=== PATIENT | female | born 1970 | race American Indian/Alaskan Native ===

== ENCOUNTER 2016-07-22 05:48 | Inpatient (IN) | payer BC, OTHER ==
--- NOTE | 2016-07-21 10:04 | Anesthesia Consultation ---
Anesthesia Consult and Med Hx - Airway Anesthetic Teeth Evaluation: Good, Crowns ROM Head & Neck: Adequate Mental/Hyoid Distance: Adequate Mallampati Class: Class II Intubation Access Assessment: Probably Good - Pulmonary Exam CTA: Yes - Cardiac Exam Cardiac Exam: RRR - Pre-Operative Health Status ASA Pre-Surgery Classification: ASA2 Proposed Anesthetic Plan: General - Central Nervous System Hx Psychiatric Problems: No - Gastrointestinal Hx Gastroesophageal Reflux Disease: Yes (In past , no meds) - Endocrine Hx Insulin Dependent Diabetes: No Hx Hypothyroidism: Yes (not on meds) - Other Systems Hx Alcohol Use: Yes (2 GLASSES OF WINE ON WEEKENDS ) Hx Cancer: No Hx Obesity: Yes - Additional Comments Anesthesia Medical History Comments: Pt has no hx of anesthesia problems in past. GERD in past on no meds. Takes meds for Herpes. BMI >35
[2016-07-21 10:29] LABS: Hematocrit 35.8 % (30.3-42.9); Hemoglobin 11.5 gm/dl (10.1-14.3); Mean Corpuscular HGB Conc 32 % (30-34); Mean Corpuscular Hemoglobin 28 pg (28-32); Mean Corpuscular Volume 87 fl (79-97); Platelet Count 247 K/mm3 (140-440); Red Blood Count 4.14 M/mm3 (3.65-5.03); Red Cell Distribution Width 15.6 % (13.2-15.2); White Blood Count 3.7 K/mm3 (4.5-11.0)
--- NOTE | 2016-07-21 21:55 | History and Physical Report ---
History of Present Illness Date of examination: 07/09/16 Chief complaint: pelvic pain History of present illness: Pt is a 46 year old presents for surgical management of pelvic pain and uterine fibroids after failed medical management. 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 History: fibroids, herpes Family/Genetic History: diabetes, heart disease, cancer Social history: Medications and Allergies Allergies Allergy/AdvReac Type Severity Reaction Status Date / Time latex Allergy Itching,Bur Verified 07/14/16 16:54 liseth tramadol Allergy nausea, Verified 07/14/16 16:54 jittery Home Medications Medication Instructions Recorded Confirmed Last Taken Type Cholecalciferol (Vitamin D3) 2,000 unit PO QDAY 08/02/15 07/14/16 08/02/15 History [Vitamin D-3] Mv,Ca,Min/Iron Fum/FA/Lyco/Lut 1 each PO QDAY 08/02/15 07/14/16 08/02/15 History [Complete Multi Tablet] Valacyclovir HCl [Valtrex] 500 mg PO PRN PRN 08/02/15 07/14/16 08/02/15 History Ibuprofen [Motrin] 800 mg PO Q6H PRN 07/14/16 07/14/16 Unknown History Active Meds: Active Medications Famotidine (Pepcid) 20 mg PO PREOP NR Stop: 07/22/16 23:59 Lactated Ringer's (Lactated Ringers) 1,000 mls @ 75 mls/hr IV DIRECT JEFF Midazolam HCl (Versed) 2 mg IV PREOP NR Stop: 07/22/16 23:59 Review of Systems All systems: negative - Vital Signs Vital signs: Vital Signs Temp Pulse Resp BP 97.4 F L 76 14 130/82 07/21/16 09:30 07/21/16 09:30 07/21/16 09:30 07/21/16 09:30 Temp Pulse Resp BP Pulse Ox 97.4 F L 76 14 130/82 07/21/16 09:30 07/21/16 09:30 07/21/16 09:30 07/21/16 09:30 - Physical Exam Breasts: Positive: deferred Cardiovascular: Regular rate Lungs: Positive: Clear to auscultation Abdomen: Positive: soft (obese) Extremities: Positive: normal Results Result Diagrams: 07/21/16 09:45 Abnormal lab results 07/21/16 Range/Units 09:45 WBC 3.7 L (4.5-11.0) K/mm3 RDW 15.6 H (13.2-15.2) % All other labs normal. Ultrasound: other (05/06/16: Uterus 9.4x4.5x5.3 cm, four fibroids noted) Assessment and Plan A: Pelvic Pain Fibroid Uterus Obesity P: Proceed with laparoscopic-assisted vaginal hysterectomy, possible bilateral salpingo-oophorectomy and other indicated procedures.
[~2016-07-22 05:48] MED LIST: ANCEF/STERILE WATER 2 GM/20 ML 20 ML IV SCH; LACTATED RINGERS 1,000 ML IV SCH; VERSED IV NR
[2016-07-22] MEDS ORDERED: NACL BACTERIOSTATIC INFILTRATI ONE (05:59)
[2016-07-22] MEDS ORDERED: PEPCID PO NR (06:00)
[2016-07-22] MEDS ORDERED: VERSED IV ONE (07:01)
[2016-07-22 07:04] LABS: BUN/Creatinine Ratio 14.28; Blood Urea Nitrogen 10 mg/dL (7-17); Calcium 9.2 mg/dL (8.4-10.2); Carbon Dioxide 26 mmol/L (22-30); Chloride 99.1 mmol/L (98-107); Glucose 97 mg/dL (65-100); Potassium 4.1 mmol/L (3.6-5.0); Sodium 138 mmol/L (137-145)
[2016-07-22 07:14] LABS: Anion Gap 17 mmol/L
--- NOTE | 2016-07-22 07:16 | Anesthesia Day of Surgery ---
Anesthesia Day of Surgery - Day of Surgery Patient Examined: Yes Patient H&P Reviewed: Yes Patient is NPO: Yes
[2016-07-22] MEDS ORDERED: ZOFRAN IV PRN ×3 (07:18→12:57)
[2016-07-22] MEDS ORDERED: DILAUDID IV PRN (07:18)
[2016-07-22] MEDS ORDERED: DILAUDID ONE (07:27)
[2016-07-22] MEDS ORDERED: DIPRIVAN 10 MG/ML IV ONE (07:28)
[2016-07-22] MEDS ORDERED: REGLAN IV PRN (07:30)
[2016-07-22] MEDS ORDERED: ANCEF/STERILE WATER 2 GM/20 ML 20 ML IV NR (08:00)
--- NOTE | 2016-07-22 08:13 | Admit Criteria Form ---
<CRISTI HOOK - Last Filed: 07/22/16 18:21> Admission Criteria Documentation: AMBULATORY SURGERY EXCEPTION CRITERIA Ambulatory Surgery Exception Criteria ( Place 'X' for any and all applicable criteria): Surgery or procedure performed on ambulatory basis may require inpatient stay for[A] ANY ONE of the following(1)(2)(3)(4)(5)(6)(7)(8)(9): [X] I. A preoperative situation, condition, or finding that warrants inpatient stay as indicated by ANY ONE of the following: [] a) Inpatient care needed because of severity of a disease or condition rather than the surgery (eg, severe cardiac or respiratory disease, severe infection) (15) (16 ) (17) (18) [] b) Emergent procedure (eg, angioplasty for acute ischemia)(19) [X] c) Complex surgical approach or situation as indicated by ANY ONE of the following(3): [] i) Open approach needed instead of usual endoscopic, transcatheter, or other less invasive procedure [] ii) Difficult approach because of previous operation [] iii) Airway monitoring required after open neck procedures(20)(21) [X] iv) Large mass requiring unusually extensive dissection [] v) Additional complicating feature requiring inpatient care (eg, drain management)(22(23): [] d) Major surgery in a pt with high anesthetic risk as indicated by ANY ONE of the following (2)(3)(5)(7)(8): [] i) ASA risk class III or higher (severe systemic disease impairing function) [D] [] ii) Advanced age (eg, older than 85 years)(14)(24) [] iii) Symptomatic heart failure(25) [] iv) Symptomatic asthma or COPD(8)(21) [] v) Morbid obesity with hemodynamic or respiratory problems(20)( 21)(26)(27) [] vi) Obstructive sleep apnea(20)(21) [] vii) Former premature infants who are younger than 60 weeks [] viii) High risk for severe postoperative abnormalities (eg, severe postoperative hypocalcemia after parathyroidectomy for severe hyperparathyroidism)(27)( 28) [] ix) Unstable angina(25) [] e) Drug-related risk requiring inpatient stay as indicated by ANY ONE of the following(5)(10)(14)(32)(33) [] i) Procedure requires discontinuing drugs or other therapy (eg , antiarrhythmic medication, antiseizure medication), which necessitates inpatient observation or treatment.(18)(31) [] ii) Major surgery and high risk drug use as indicated by ANY ONE of the following: [] 1) Active abuse of cocaine or similar drug [] 2) Monoamine oxidase inhibitor use [] 3) Other drug identified as posing risk [] f) Inadequate outpatient care situation as indicated by ANY ONE of the following(5)(10)(14)(32)(33) [] i) Patient lives remote from medical facility and procedure has urgent complication potential, and temporary nearby residence cannot be arranged [] ii) Patient will have postprocedure incapacitation and inadequate assistance at home, or alternative level of care cannot be arranged. [] iii) Patient will have long general anesthesia or procedure side effect resolution time, and competent person to stay with patient on first postoperative night at home or alternative level of care cannot be arranged. []iv) Other inadequate outpatient situation that cannot be handled by other means [] II. A perioperative event, condition, or finding that warrants inpatient stay as indicated by ANY ONE of the following (1)(2)(3): [] a) Inadequate physiologic recovery: cardiovascular, respiratory, or hemodynamic status not normal or near preoperative baseline(18) [] b) Hemodynamic instability [] c) Patient not alert with near normal or baseline mental status [] d) Temperature not normal or as expected and not appropriate for outpatient treatment of condition [] e) Ambulatory or appropriate activity level status not yet achieved post procedure [E](34)(35)(36) [] f) Operative site not appropriate (eg, unexpected or excessive drainage or bleeding) [] g) Postoperative effects not resolved or adequately managed (eg, significant pain or vomiting not appropriate for outpatient or next level of care)(10)(12) [] h) Complicating features requiring inpatient care as indicated by ANY ONE of the following(37): [] i) Severe complications of procedure (eg, bowel injury, airway compromise, vascular injury,severe hemorrhage) [] ii) Extensive (eg, dissection far beyond usual scope of procedure ) or prolonged (eg, 120 minutes beyond usual) surgery needed requiring inpatient postoperative care [] iii) Conversion to an open or complex procedure that requires inpatient care (eg, open vs laparoscopic cholecystectomy, abdominal vs vaginal hysterectomy)(38) [] iv) Comorbid condition or test result identified during or post procedure that requires inpatient care (7) [] v) Malignant hyperthermia(30) [] vi) Other complicating feature requiring inpatient care(22)(23) Inpatient stay may be needed until ALL of the following are present (1)(2)(3)(4) (5)(6)(10)(14)(33)(40): []a) Physiologic recovery: cardiovascular, respiratory, and hemodynamic status normal or near preoperative baseline []b) Hemodynamic stability []c) Patient alert, with near normal or baseline mental status []d) Temperature appropriate: patient afebrile or temperature appropriate for outpt treatment of condition []e) Activity level appropriate: ambulatory or appropriate activity level post procedure []f) Operative site appropriate as indicated by ALL of the following: []i) Site dry or with expected drainage []ii) Any blood noted is as expected for procedure. []g) Postoperative effects resolved or managed as indicated by ALL of the following: []i) Pain management appropriate for outpatient (or next level of) care(10) []ii) Minimal nausea and vomiting: if present, successfully treated with oral medication(12) []iii) Headache, dizziness, or drowsiness (if present) are mild. []h) Voiding status acceptable as indicated by ANY ONE of the following: []i) Voiding spontaneously []ii) No voiding but instructions given for follow-up in 6 to 8 hours []iii) Urinary catheter in place, and instructions given for follow-up []i) Complicating features requiring inpatient care manageable at a lower level of care(37) []j) Comorbid conditions manageable at a lower level of care(37) The original [employer] content created by [employer] has been revised. The portions of the content which have been revised are identified through the use of italic text or in bold, and [facility] has neither reviewed nor approved the modified material. All other unmodified content is copyright [facility] [employer] Please see references footnoted in the original [facility] [employer] edition 2016 Admission Criteria Met: Yes <ENDY ESCOBAR - Last Filed: 07/24/16 00:25> Admission Criteria Documentation: Reason for admission: pt underwent hysterectomy which requires inpatient observation postoperatively.
[2016-07-22] MEDS ORDERED: XYLOCAINE MPF 2% ONE (08:46)
[2016-07-22] MEDS ORDERED: ZEMURON IV ONE (08:46)
[2016-07-22] MEDS ORDERED: TORADOL ONE (09:04)
[2016-07-22] MEDS ORDERED: ZOFRAN ONE (09:06)
[2016-07-22] MEDS ORDERED: ROBINUL ONE (09:07)
[2016-07-22] MEDS ORDERED: BLOXIVERZ ONE (09:08)
[2016-07-22] MEDS ORDERED: ePHEDrine SULFATE ONE (09:13)
[2016-07-22] MEDS ORDERED: NACL 0.9% IR ONE (10:35)
[2016-07-22] MEDS ORDERED: MARCAINE 0.5% INFILTRATI ONE (10:35)
[2016-07-22] MEDS: DILAUDID IV PRN ×2 (10:59→11:19)
--- NOTE | 2016-07-22 11:06 | Operative Report ---
Operative Report Operative Report: Date of procedure: July 22, 2016 Preoperative Diagnosis: 1) Pelvic Pain 2) Fibroid Uterus Postoperative diagnosis: Same Surgeon: Cadence Moctezuma MD Temperature Inspector: Faith Ro MD Anesthesia: GETA Procedure: Laparoscopic-assisted vaginal hysterectomy, bilateral salpingectomy Findings: 1) Small anteverted mobile uterus that sounded to 10 cm with subserosal fibroids 2) Normal appearing ovaries and fallopian tubes EBL: 225 mL IVF: 500 mL Urine output: 700 mL, clear at the end of the procedure Specimen: Uterus, cervix and bilateral fallopian tubes to pathology Complications: None. Counts correct x 3 Drains: Bell to gravity Disposition: Stable to PACU Indication for procedure: Pt is a 46 year old who presents for surgical management of pelvic pain and uterine fibroids after failed medical management. Operation in detail: After the risks, benefits, alternatives and complications were explained to the patient, she gave informed consent for the procedure. She was subsequently taken to the operating room with her IV noted to be running well and placed in the dorsal supine position. SCDs were noted to be in place and functioning. General anesthesia was then induced without difficulty. The patient was then placed in the dorsal lithotomy position with Anatoly stirrups. Exam under anesthesia revealed a small mobile uterus. The patient was then prepped and draped in a normal sterile fashion. A timeout was then performed. A bell catheter was placed and the bladder was emptied. A bivalve speculum was placed into the vagina. A single-tooth tenaculum was then placed on the anterior lip of the cervix for traction. The uterus was sounded to 10 cm. A large V-Care uterine manipulator was introduced without difficulty. A glove filled with Raytecs was placed into the vagina. The surgeon's gloves were changed. Two towel clamps were applied to the periumbilical skin for manual elevation of the abdomen. A small horizontal incision was made 4 cm above the umbilicus. A Veress needle was introduced into the peritoneal cavity at a straight angle without difficulty. A saline drop test was performed to confirm intraperitoneal placement. Pneumoperitoneum was established with carbon dioxide gas to a pressure of 15 mm Hg. A 10 mm trocar was inserted into the abdomen under direct visualization. Intraabominal placement was confirmed with the laparoscope. An intraabdominal survey revealed pelvic anatomy was as noted above. Two 10 mm trocars were inserted in the bilateral lower quadrants 8 cm from the midline under direct laparoscopic visualization. Trendelenberg position was obtained to facilitate movement of the bowel and omentum out of the pelvis. The uterus was elevated from the pelvis with a uterine manipulator. Using a 10 mm Ligasure device, the fallopian tubes were bilaterally excised. Next, the broad, utero-ovarian and round ligaments on the right side were sequentially transected with the Ligasure device until the uterine artery was exposed. The same procedure was repeated on the left side. The vesico-uterine peritoneum was opened with monopolar scissors and the bladder was dissected off the lower uterine segment and upper vagina. With the V-Care pushing into the pelvis, the cervico-vaginal junction was delineated by the colpotomy ring, which was apparent through the tissue. The vagina was entered posteriorly with the monopolar scissors and incised circumferentially along the cervico-vaginal junction. The uterus was then delivered through the vagina and sent to pathology. Attention was then turned to the vaginal portion of the case. The patient was placed in high dorsal lithotomy position. The vaginal cuff was grasped with Allis clamps then reapproximated with running locked 0-Vicryl suture. The surgeon's gloves were changed. The pnuemoperitoneum was reestablished and the pelvis was inspected with no active bleeding noted. Luis Enrique AH was then sprayed over all pedicles. All instruments were removed from the abdomen. The fascial defects of the three trocar sites were closed with a Sukhdev-Sanon device using 0-Vicryl. All three skin incisions were injected with 0.5% Marcaine then reapproximated with 4 -0 Vicryl in a subcuticular fashion. The incisions were then covered with steri- strips, telfa and tegaderm dressings. Next, vaginal packing gauze moistened with saline was placed in the vagina. At this time the procedure was ended. The patient was returned to the dorsal supine position and extubated without difficulty. She was subsequently taken to the PACU in stable condition. All counts were correct x 3.
--- NOTE | 2016-07-22 11:06 | Post Operative Note ---
Date of procedure: 07/22/16 Pre-op diagnosis: Pelvic pain, Fibroid Uterus Post-op diagnosis: same Findings: 1) Small anteverted mobile uterus that sounded to 10 cm with subserosal fibroids 2) Normal appearing ovaries and fallopian tubes Procedure: Laparoscopic-assisted vaginal hysterectomy, bilateral salpingectomy Anesthesia: GETA Surgeon: ENDY ESCOBAR Estimator Binding: CEFERINO CHAVARRIA Estimated blood loss: other (225 mL) Pathology: list (uterus, cervix, fallopian tubes) Specimen disposition: to lab Condition: stable Disposition: PACU
[2016-07-22] MEDS ORDERED: MORPHINE PCA 30MG/30ML IV ONE (11:16)
--- NOTE | 2016-07-22 12:56 | Post Anesthesia Evaluation ---
- Post Anesthesia Evaluation Patient Participated: Yes Airway Patent: Yes Stable Respiratory Function: Yes Nausea/Vomiting: No Temp > 96.8F: Yes Pain Manageable: Yes Adequeate Hydration: Yes Anesthesia Complications: No Block Receding Appropriately: Not Applicable Patient on Ventilator: No
[2016-07-22] MEDS ORDERED: MORPHINE PCA 30MG/30ML IV SCH (12:57)
[2016-07-22] MEDS ORDERED: D5W/0.45% NACL/KCL 20 MEQ 1,000 ML IV SCH (12:57)
[2016-07-22] MEDS ORDERED: NARCAN 0.4 MG/1 ML IV PRN ×2 (12:57)
[2016-07-22] MEDS ORDERED: DULCOLAX PR PRN (12:57)
[2016-07-22] MEDS ORDERED: BENADRYL IV PRN (12:57)
[2016-07-22] MEDS ORDERED: BENADRYL PO PRN (12:57)
[2016-07-22] MEDS ORDERED: MILK OF MAGNESIA PO PRN (12:57)
[2016-07-22] MEDS: TORADOL IV SCH ×2 (13:47→20:24)
[2016-07-23] MEDS: TORADOL IV SCH (03:48)
[2016-07-23 05:49] LABS: Basophils % (Auto) 0.6 % (0.0-1.8); Eosinophils % (Auto) 1.5 % (0.0-4.3); Hematocrit 29.1 % (30.3-42.9); Hemoglobin 9.5 gm/dl (10.1-14.3); Mean Corpuscular HGB Conc 33 % (30-34); Mean Corpuscular Hemoglobin 28 pg (28-32); Mean Corpuscular Volume 87 fl (79-97); Platelet Count 201 K/mm3 (140-440); Red Blood Count 3.34 M/mm3 (3.65-5.03); Red Cell Distribution Width 15.7 % (13.2-15.2); White Blood Count 5.3 K/mm3 (4.5-11.0)
[2016-07-23 06:08] LABS: BUN/Creatinine Ratio 7.14; Blood Urea Nitrogen 5 mg/dL (7-17); Calcium 8.2 mg/dL (8.4-10.2); Carbon Dioxide 25 mmol/L (22-30); Chloride 100.7 mmol/L (98-107); Glucose 101 mg/dL (65-100); Potassium 3.8 mmol/L (3.6-5.0); Sodium 136 mmol/L (137-145)
[2016-07-23 06:11] LABS: Anion Gap 14 mmol/L
[2016-07-23] MEDS: PERCOCET 5/325 PO PRN ×4 (08:30→20:39)
[2016-07-23] MEDS ORDERED: MORPHINE IM PRN (08:54)
[2016-07-23] MEDS ORDERED: MYLICON PO PRN (08:55)
--- NOTE | 2016-07-23 08:59 | Progress Note ---
Assessment and Plan A: POD#1 s/p LAVH, poor pain control P: IM Morphine. Improve pain control. Routine care. Subjective - Subjective Date of service: 07/23/16 Principal diagnosis: s/p LAVH Interval history: Pt is a 46 year old presents for surgical management of pelvic pain and uterine fibroids after failed medical management. Patient reports: pain poorly controlled, no voiding normally (bell just removed ), no pain well controlled, no flatus, no bowel movement, no ambulating normally Objective - Vital Signs Latest vital signs: Vital Signs Temp Pulse Pulse Pulse Resp BP BP 07/23/16 07:59 98.4 F 81 18 95/61 07/23/16 06:45 18 07/23/16 04:15 18 07/23/16 04:00 98.4 F 84 18 105/73 07/23/16 03:48 18 07/23/16 01:56 18 07/23/16 00:15 18 07/23/16 00:05 98.7 F 66 18 96/56 07/22/16 22:30 18 07/22/16 20:54 18 07/22/16 20:30 18 07/22/16 20:24 18 07/22/16 20:00 97.3 F L 65 18 105/60 07/22/16 19:30 18 07/22/16 15:50 98.0 F 70 18 106/54 07/22/16 12:42 97.7 F 75 22 107/67 07/22/16 12:25 98.1 F 72 14 109/60 07/22/16 12:15 98.5 F 69 12 109/60 07/22/16 12:00 61 13 98/56 07/22/16 11:45 64 12 96/52 07/22/16 11:30 66 14 07/22/16 11:25 18 07/22/16 11:19 14 07/22/16 11:15 62 13 114/67 07/22/16 11:10 18 07/22/16 11:05 65 14 114/70 07/22/16 11:00 62 22 106/66 07/22/16 10:59 16 07/22/16 10:55 97.0 F L 60 13 91/66 Pulse Ox 07/23/16 07:59 07/23/16 06:45 07/23/16 04:15 07/23/16 04:00 07/23/16 03:48 07/23/16 01:56 07/23/16 00:15 07/23/16 00:05 07/22/16 22:30 07/22/16 20:54 07/22/16 20:30 07/22/16 20:24 07/22/16 20:00 07/22/16 19:30 07/22/16 15:50 07/22/16 12:42 07/22/16 12:25 100 07/22/16 12:15 100 07/22/16 12:00 100 07/22/16 11:45 100 07/22/16 11:30 100 07/22/16 11:25 07/22/16 11:19 07/22/16 11:15 100 07/22/16 11:10 07/22/16 11:05 100 07/22/16 11:00 100 07/22/16 10:59 07/22/16 10:55 100 Intake and Output 07/22/16 07/23/16 07/23/16 22:59 06:59 14:59 Intake Total 1680 1010 120 Output Total 200 2000 Balance 1480 -990 120 Intake: IV 600 650 Lactated Ringers 1,000 ml 600 @ 75 mls/hr IV DIRECT JEFF Rx#:[id number] D5w/0.45% NaCl/KCl 20 Meq 650 1,000 ml @ 100 mls/hr IV DIRECT JEFF Rx#: [id number] Oral 720 360 120 Intake, Free Water 360 Output: Urine 200 2000 Indwelling Catheter 200 2000 Other: Total, Intake Amount 120 240 120 Total, Output Amount 200 1000 Voiding Method Indwelling Catheter - Exam Breasts: Present: deferred Cardiovascular: Present: Regular rate Lungs: Present: Clear to auscultation (obese) Extremities: Present: normal Incision: Present: dressed - Labs Labs: Abnormal lab results 07/23/16 07/23/16 Range/Units 05:15 05:15 RBC 3.34 L (3.65-5.03) M/mm3 Hgb 9.5 L (10.1-14.3) gm/dl Hct 29.1 L D (30.3-42.9) % RDW 15.7 H (13.2-15.2) % Warren % (Auto) 9.2 H (0.0-7.3) % Sodium 136 L (137-145) mmol/L BUN 5 L (7-17) mg/dL Glucose 101 H (65-100) mg/dL Calcium 8.2 L (8.4-10.2) mg/dL
[2016-07-23] MEDS: MILK OF MAGNESIA PO SCH ×2 (12:50→18:40)
[2016-07-23] MEDS ORDERED: MOTRIN ONE (17:33)
[2016-07-23] MEDS: MOTRIN PO PRN (17:35)
[2016-07-24] MEDS: PERCOCET 5/325 PO PRN (00:12)
[2016-07-24] MEDS: MILK OF MAGNESIA PO SCH (04:27)
[2016-07-24] MEDS: MOTRIN PO PRN (04:27)
--- NOTE | 2016-07-24 08:33 | Progress Note ---
Assessment and Plan A: POD#2 s/p LAVH doing well, asymptomatic anemia P: Discharge home. Subjective - Subjective Date of service: 07/24/16 Principal diagnosis: s/p LAVH Interval history: Pt had 2 bowel movements overnight. She is requesting hospital discharge. Patient reports: appetite normal, voiding normally, pain well controlled, flatus , bowel movement, ambulating normally, no nauseated Objective - Vital Signs Latest vital signs: Vital Signs Temp Pulse Pulse Pulse Resp BP 07/24/16 04:00 97.7 F 79 22 104/66 07/24/16 00:05 98.6 F 86 20 121/60 07/23/16 20:39 18 07/23/16 20:00 98.8 F 95 H 20 106/62 07/23/16 15:54 98.3 F 85 18 108/62 07/23/16 13:00 98.4 F 75 18 98/65 Intake and Output 07/23/16 07/24/16 07/24/16 22:59 06:59 14:59 Intake Total 150 Output Total 400 Balance -400 150 Intake: Oral 150 Output: Urine 400 Void 400 Other: Total, Intake Amount 150 Total, Output Amount 400 Voiding Method Toilet # Voids Void 500 # Bowel Movements 1 0 - Exam Breasts: Present: deferred Cardiovascular: Present: Regular rate Lungs: Present: Clear to auscultation Abdomen: Present: soft (obese ), normal bowel sounds Extremities: Present: normal Incision: Present: dressed
--- NOTE | 2016-07-24 08:36 | Discharge Summary ---
Providers - Providers Date of Admission: 07/23/16 08:38 Date of discharge: 07/24/16 Attending physician: ENDY ESCOBAR Primary care physician: YASMIN CRAFT Hospitalization Reason for admission: other (LAVH/ bilateral salpingectomy ) Procedure details: Please see operative note. Incision: dressed Hospital course: Pt underwent LAVH/bilateral salpingectomy which she tolerated well. She met discharge criteria on POD#2. Condition at discharge: Stable Disposition: DISCHARGED TO HOME OR SELFCARE - Discharge Diagnoses (1) Pelvic pain Status: Acute (2) Fibroid uterus Status: Acute Qualifiers: Uterine leiomyoma location: unspecified location Qualified Code(s): D25.9 - Leiomyoma of uterus, unspecified (3) Obesity Status: Acute Qualifiers: Obesity type: unspecified obesity type Obesity severity: non-morbid Qualified Code(s): E66.9 - Obesity, unspecified Plan - Discharge Medications Prescriptions: Docusate Sodium [Colace] 100 mg PO BID PRN #60 capsule PRN Reason: Constipation Ferrous Sulfate [Feosol 325 MG tab] 325 mg PO BID #60 tablet Ibuprofen [Motrin] 800 mg PO Q8HR PRN #30 tablet PRN Reason: Pain oxyCODONE /ACETAMINOPHEN [Percocet 5/325] 1 tab PO Q6HR PRN #30 tablet PRN Reason: Pain - Provider Discharge Summary Activity: no sex for 6 weeks, no heavy lifting 4 weeks, no strenuous exercise, other (Nothing in the vagina x 6 wks ) Diet: routine Instructions: routine Additional instructions: [] Smoking cessation referral if applicable(refer to patient education folder for contact #) [] Refer to [facility] Booklet Call your doctor immediately for: * Fever > 100.5 * Heavy vaginal bleeding ( >1 pad per hour) * Severe persistent headache * Shortness of breath * Reddened, hot, painful area to leg or breast * Drainage or odor from incision. * Keep incision clean and dry at all times and follow doctor's instructions regarding bathing/showering - Follow up plan Follow up: ENDY ESCOBAR MD [Staff Physician] - 08/05/16 (incision check )
[2016-07-24 09:33] VITALS: BP 113/58
== END 2016-07-24 09:30 | disposition home or self-care (01) | DRG 743 ==
LOC: OR 05:48 → OB 08:38 → OBSVTOIN 07-23 08:38
PROVIDERS: ADMIT Obstetrics & Gynecology; ATTEND Obstetrics & Gynecology
PROC: 0UT9FZZ Resection of Uterus, Via Natural or Artificial Opening With Percutaneous Endoscopic Assistance (ICD-10-PCS; principal; 2016-07-22)
PROC: 0UT7FZZ Resection of Bilateral Fallopian Tubes, Via Natural or Artificial Opening With Percutaneous Endoscopic Assistance (ICD-10-PCS; 2016-07-22)
PROC: 0UTC7ZZ Resection of Cervix, Via Natural or Artificial Opening (ICD-10-PCS; 2016-07-22)
DX: D25.9 Leiomyoma of uterus, unspecified (principal); E66.9 Obesity, unspecified; Z83.3 Family history of diabetes mellitus; Z80.9 Family history of malignant neoplasm, unspecified; Z82.49 Family history of ischemic heart disease and other diseases of the circulatory system; Z88.6 Allergy status to analgesic agent; Z91.040 Latex allergy status; Z68.35 Body mass index [BMI] 35.0-35.9, adult; D64.9 Anemia, unspecified
CPT/HCPCS: 36415; 80048; 84703; 85025; 85027; 86850; 86900; 86901; 88307; G0378; J0690; J1170; J1885; J2250; J2270; J2405; J2704; J2710; J7120

== ENCOUNTER 2020-11-06 13:08 | Outpatient (CLI) | payer BC | END 2020-11-06 13:09 | disposition home or self-care (01) | LOC: SPVWC 13:08 | PROVIDERS: ATTEND Internal Medicine | DX: N64.4 Mastodynia (principal) | CPT/HCPCS: 77066 ==